=== PATIENT | female | born 1985 | race Caucasian/White ===

== ENCOUNTER 2021-05-02 16:33 | Emergency (ER) | payer OTHER ==
[~2021-05-02] VITALS: Ht 170.2 cm; Wt 70.3 kg
[2021-05-02] MEDS ORDERED: PROZAC10 M1 PO (17:05)
[2021-05-02] MEDS ORDERED: BIRTH CONTROL PO (17:06)
[2021-05-02] MEDS ORDERED: TRAMADOL 50 MG50 MG PO (18:09)
[2021-05-02 18:31] VITALS: BP 124/62
== END 2021-05-02 18:33 | disposition home or self-care (01) ==
LOC: M.ERS 16:33
DX: S92.411A Displaced fracture of proximal phalanx of right great toe, initial encounter for closed fracture (principal); S92.421A Displaced fracture of distal phalanx of right great toe, initial encounter for closed fracture; F32.9 Major depressive disorder, single episode, unspecified; Z79.899 Other long term (current) drug therapy; W22.8XXA Striking against or struck by other objects, initial encounter; Y93.89 Activity, other specified; Y92.89 Other specified places as the place of occurrence of the external cause; Y99.8 Other external cause status